=== PATIENT | female | born 1995 | race Hispanic/Latino ===

== ENCOUNTER 2017-07-18 19:17 | Inpatient (IN) | payer MEDICAID ==
[~2017-07-18] VITALS: Ht 157.5 cm; Wt 97.5 kg
[2017-07-18 20:41] VITALS: BP 119/78
[2017-07-18] MEDS ORDERED: PREN1TAB89 PO (20:45)
[2017-07-18] MEDS ORDERED: NITR100 PO (20:45)
[2017-07-18] MEDS ORDERED: GLYB2.5 PO (20:45)
[2017-07-18 20:52] LABS: APPEARANCE,URINE Cloudy (CLEAR); BILIRUBIN,URINE Negative (NEGATIVE); COLOR,URINE Yellow (YELLOW); GLUCOSE, URINE (UA) Negative (NEGATIVE); KETONES,URINE Negative (NEGATIVE); LEUKOCYTE ESTERASE ,URINE Moderate (NEGATIVE); NITRATE,URINE Negative (NEGATIVE); OCCULT BLOOD,URINE Nonhemolyzed Trace (NEGATIVE); PH,URINE 7.5 (5.0-8.0); PROTEIN,URINE Negative (NEGATIVE)
[2017-07-18 20:59] LABS: BACTERIA,URINE Few /HPF (None Seen); SQUAMOUS EPITHELIAL CELL,UR 50-100 /LPF (0-2)
[2017-07-18 21:30] LABS: HEMATOCRIT 36.3 % (36-48); MEAN CORPUSCULAR HEMOGLOBIN 30.6 pg (27.0-33.0); MEAN CORPUSCULAR HGB CONC 35.1 g/dL (32.0-36.0); MEAN CORPUSCULAR VOLUME 87.1 fL (80-100); PLATELET COUNT (AUTO) 211 K/uL (130-400); RED BLOOD CELL COUNT(AUTO) 4.17 MIL/uL (4.00-5.50); RED CELL DISTRIBUTION WIDTH 14.2 % (11.0-15.5); WHITE BLOOD COUNT (AUTO) 9.4 K/uL (4.8-10.8)
[2017-07-18] MEDS: LACTATED RINGERS 1000ML 1,000 ML IV PRN (22:22)
[2017-07-19] MEDS ORDERED: OXYTOCIN 10 USP UNITS/ML 20 UNIT in LACTATED RINGERS 1000ML 1,000 ML IV SCH (04:15)
[2017-07-19] MEDS ORDERED: LACTATED RINGERS 1000ML 1,000 ML IV ONE (04:44)
[2017-07-19] MEDS ORDERED: OXYTOCIN 10 USP UNITS/ML ONE ×4 (04:45→19:06)
[2017-07-19] MEDS: LACTATED RINGERS 1000ML 1,000 ML IV PRN (05:18)
[2017-07-19] MEDS ORDERED: PROMETHAZINE HCL 25 MG/ML 1ML AMPULE IM ONE (14:35)
[2017-07-19] MEDS ORDERED: MEPERIDINE-PF 50 MG/ML SYG ONE (14:36)
[2017-07-19] MEDS ORDERED: MEPERIDINE-PF 50 MG/ML SYG IVP PRN (14:45)
[2017-07-19] MEDS ORDERED: PROMETHAZINE HCL 25 MG/ML 1ML AMPULE IM PRN ×3 (14:45→19:45)
[2017-07-19] MEDS ORDERED: CEFAZOLIN SODIUM 1 GM VIAL IVP PRN (15:45)
[2017-07-19] MEDS ORDERED: LACTATED RINGERS 1000ML 1,000 ML IV SCH (15:45)
[2017-07-19] MEDS ORDERED: CALDOLOR 800MG+NS 250ML 250 ML IV PRN (15:45)
[2017-07-19] MEDS ORDERED: FENTANYL CITRATE PF 50 MCG/1 ML 2ML VIAL ONE ×2 (15:54→16:17)
[2017-07-19] MEDS ORDERED: SODIUM CHLORIDE 0.9% 10 ML VIAL ONE (15:55)
[2017-07-19] MEDS ORDERED: PHENYLEPHRINE HCL 10 MG/ML 1ML VIAL IV ONE (15:55)
[2017-07-19] MEDS ORDERED: ONDANSETRON HCL 4 MG/2 ML VIAL ONE (15:55)
[2017-07-19] MEDS ORDERED: DURAMORPH PF1 MG/ML 10ML AMP IV ONE (15:59)
[2017-07-19] MEDS ORDERED: CEFAZOLIN 3GM /D5W 100ML 100 ML IV SCH (16:00)
[2017-07-19] MEDS ORDERED: CEFAZOLIN SODIUM 1 GM VIAL IVP ONE (16:00)
[2017-07-19] MEDS ORDERED: CEFAZOLIN SODIUM 1 GM VIAL ONE (16:02)
[2017-07-19] MEDS ORDERED: KETAMINE HCL 100 MG/ML 5ML VIAL IJ ONE (16:18)
[2017-07-19] MEDS ORDERED: MIDAZOLAM HCL 1 MG/ML 2ML VIAL ONE (16:20)
[2017-07-19] MEDS ORDERED: METHYLERGONOVINE MALEATE 0.2 MG/1 ML ML ONE (18:06)
[2017-07-19 18:50] VITALS: BP 127/71
[2017-07-19] MEDS ORDERED: METOCLOPRAMIDE 10 MG/2 ML VIAL IVP PRN (19:30)
[2017-07-19] MEDS ORDERED: NALOXONE HCL 0.4 MG/1 ML ML IVP PRN ×2 (19:30)
[2017-07-19] MEDS ORDERED: ONDANSETRON HCL 4 MG/2 ML 8 MG in SODIUM CHLORIDE 0.9% 50 ML IVP NR (19:30)
[2017-07-19] MEDS ORDERED: EPHEDRINE SULFATE 50 MG/ML AMPULE IVP PRN (19:30)
[2017-07-19] MEDS ORDERED: DiphenhydrAMINE HCL 50 MG/ML VIAL IVP PRN (19:30)
[2017-07-19] MEDS ORDERED: HYDROCODONE/ACETAMINOPHEN 5/325 MG TAB PO PRN ×2 (19:30)
[2017-07-19] MEDS ORDERED: ONDANSETRON HCL 4 MG/2 ML VIAL IVP PRN ×2 (19:30)
[2017-07-19] MEDS ORDERED: MORPHINE SULFATE 2 MG/ML 1ML SYG IVP PRN (19:30)
[2017-07-19] MEDS ORDERED: OXYTOCIN-LR 20 UNITS/1000 ML 1,000 ML IV PRN (19:35)
[2017-07-19] MEDS ORDERED: SODIUM CHLORIDE 0.9% 10 ML VIAL IVP PRN (19:45)
[2017-07-19] MEDS ORDERED: MEPERIDINE-PF 75 MG/ML SYG IM PRN (19:45)
[2017-07-19] MEDS ORDERED: DEXTROSE 5 %-0.45 % NACL 1,000 ML IV PRN (19:45)
[2017-07-19 19:50] VITALS: BP 129/71
[2017-07-19 23:26] VITALS: BP 120/72
[2017-07-20] MEDS: CALDOLOR 800MG+NS 250ML 250 ML IV SCH ×2 (00:28→08:56)
[2017-07-20 03:16] VITALS: BP 106/50
[2017-07-20 05:42] LABS: HEMATOCRIT 23.1 % (36-48); MEAN CORPUSCULAR HEMOGLOBIN 31.1 pg (27.0-33.0); MEAN CORPUSCULAR HGB CONC 35.3 g/dL (32.0-36.0); MEAN CORPUSCULAR VOLUME 88.2 fL (80-100); PLATELET COUNT (AUTO) 149 K/uL (130-400); RED BLOOD CELL COUNT(AUTO) 2.62 MIL/uL (4.00-5.50); RED CELL DISTRIBUTION WIDTH 14.1 % (11.0-15.5)
[2017-07-20] MEDS ORDERED: BISACODYL 10 MG SUPP.RECT RC PRN (08:00)
[2017-07-20] MEDS ORDERED: DIPHENHYDRAMINE HCL 25 MG CAPSULE PO PRN (08:00)
[2017-07-20] MEDS ORDERED: LANOLIN 30GM OINTMENT TP PRN (08:00)
[2017-07-20] MEDS ORDERED: ACETAMINOPHEN-CODEINE 300/30MG TAB PO PRN (08:00)
[2017-07-20] MEDS ORDERED: ACETAMINOPHEN EXTRA STRENGTH 500 MG TABLET PO PRN (08:00)
[2017-07-20] MEDS ORDERED: HYDROCODONE/ACETAMINOPHEN 5/325 MG TAB PO PRN (08:00)
[2017-07-20 08:01] VITALS: BP 93/49
[2017-07-20 08:23] LABS: HEPATITIS Bs ANTIGEN SCREEN P Negative (Negative)
[2017-07-20] MEDS: DOCUSATE SODIUM 100 MG CAP PO SCH ×2 (09:19→21:11)
[2017-07-20] MEDS: SIMETHICONE 80 MG TAB.CHEW PO PRN ×4 (09:20→21:11)
[2017-07-20 11:47] VITALS: BP 101/59
[2017-07-20 15:43] VITALS: BP 103/50
[2017-07-20] MEDS: IBUPROFEN 600 MG TABLET PO PRN (18:03)
[2017-07-20 19:36] VITALS: BP 117/70
[2017-07-20] MEDS: FLU VACC QS2017-18 36MOS UP/PF 60 MCG/0.5 ML ML IM SCH (19:45)
[2017-07-20] MEDS ORDERED: AMMONIA 1 EA AMP IH ONE (21:02)
[2017-07-20 23:24] VITALS: BP 109/56
[2017-07-21 03:12] VITALS: BP 117/55
[2017-07-21] MEDS: IBUPROFEN 600 MG TABLET PO PRN ×3 (03:19→18:29)
[2017-07-21] MEDS: FLU VACC QS2017-18 36MOS UP/PF 60 MCG/0.5 ML ML IM SCH (03:22)
[2017-07-21 07:58] VITALS: BP 117/54
[2017-07-21] MEDS: SIMETHICONE 80 MG TAB.CHEW PO PRN ×2 (09:02→18:27)
[2017-07-21] MEDS: DOCUSATE SODIUM 100 MG CAP PO SCH (09:02)
[2017-07-21 11:37] VITALS: BP 118/57
[2017-07-21] MEDS ORDERED: FERR325T22 PO (13:41)
[2017-07-21] MEDS ORDERED: TYL3 PO (13:43)
[2017-07-21 15:31] VITALS: BP 122/63
[2017-07-21 19:45] VITALS: BP 123/71
== END 2017-07-21 20:30 | disposition home or self-care (01) | DRG 540 ==
LOC: UNDOADMIN 19:17 → LDH 19:17 → WSH 07-19 18:45
PROVIDERS: ADMIT Obstetrics & Gynecology; ATTEND Obstetrics & Gynecology
PROC: 3E0234Z Introduction of Serum, Toxoid and Vaccine into Muscle, Percutaneous Approach (ICD-10-PCS; 2017-07-19)
PROC: 30233N1 Transfusion of Nonautologous Red Blood Cells into Peripheral Vein, Percutaneous Approach (ICD-10-PCS; 2017-07-19)
PROC: 10D00Z1 Extraction of Products of Conception, Low, Open Approach (ICD-10-PCS; principal; 2017-07-19 16:00)
DX: O76 Abnormality in fetal heart rate and rhythm complicating labor and delivery (principal); Z23 Encounter for immunization; Z37.0 Single live birth; Z3A.39 39 weeks gestation of pregnancy
CPT/HCPCS: 36415; 36430; 59510; 81001; 82947; 85027; 86592; 86850; 86900; 86901; 86922; 87340; A4344; A4450; A4606; J0690; J1741; J2175; J2210; J2250; J2274; J2370; J2405; J2550; J2590; J3010; J3490; J7030; J7120; P9016; Q2038

== ENCOUNTER 2019-07-22 20:24 | Observation (INO) | payer MEDICAID ==
[~2019-07-22] VITALS: Ht 157.5 cm; Wt 103.4 kg
[~2019-07-22 20:24] MED LIST: GLYB5TAB8 PO; PREN-154 PO
[2019-07-22 21:11] LABS: BILIRUBIN,URINE Negative (NEGATIVE); COLOR,URINE Dark Yellow (YELLOW); GLUCOSE, URINE (UA) TRACE mg/dL (NEGATIVE); KETONES,URINE Negative (NEGATIVE); LEUKOCYTE ESTERASE ,URINE Moderate (NEGATIVE); NITRATE,URINE Negative (NEGATIVE); OCCULT BLOOD,URINE Small (NEGATIVE); PROTEIN,URINE Trace mg/dL (NEGATIVE)
[2019-07-22 21:12] LABS: APPEARANCE,URINE CLOUDY (CLEAR)
[2019-07-22 21:21] LABS: BACTERIA,URINE Many /HPF (None Seen); RBC,URINE None Seen /HPF (0-1)
[2019-07-22 21:22] LABS: AMORPHOUS SEDIMENT,UR Many /LPF (None Seen)
[2019-07-23] MEDS ORDERED: LACTATED RINGERS 1000ML 1,000 ML IV SCH (01:00)
== END 2019-07-23 10:05 | disposition home or self-care (01) ==
LOC: EDH 20:24 → LDH 20:25
PROVIDERS: ADMIT Obstetrics & Gynecology; ATTEND Obstetrics & Gynecology
DX: O9A.213 Injury, poisoning and certain other consequences of external causes complicating pregnancy, third trimester (principal); O34.219 Maternal care for unspecified type scar from previous cesarean delivery; W10.9XXA Fall (on) (from) unspecified stairs and steps, initial encounter; Y93.89 Activity, other specified; Y92.89 Other specified places as the place of occurrence of the external cause; Z3A.33 33 weeks gestation of pregnancy
CPT/HCPCS: 81001; 99284; G0378 ×13; J7120; 96360; 96361

== ENCOUNTER 2019-09-11 05:27 | Inpatient (IN) | payer MEDICAID ==
[~2019-09-11] VITALS: Ht 157.5 cm; Wt 105.2 kg
[2019-09-11] VITALS (16 sets, daily range): BP systolic 106–131; BP diastolic 56–87
[2019-09-11] MEDS ORDERED: LACTATED RINGERS 1000ML 1,000 ML IV SCH (06:00)
[2019-09-11] MEDS ORDERED: CEFAZOLIN SODIUM 1 GM VIAL IVP PRN (06:00)
[2019-09-11] MEDS ORDERED: CALDOLOR 800MG+NS 250ML 250 ML IV PRN (06:00)
[2019-09-11 06:56] LABS: HEMATOCRIT 35.5 % (36-48); MEAN CORPUSCULAR HEMOGLOBIN 28.4 pg (27.0-33.0); MEAN CORPUSCULAR HGB CONC 32.7 g/dL (32.0-36.0); MEAN CORPUSCULAR VOLUME 86.8 fL (79-99); PLATELET COUNT (AUTO) 184 K/uL (130-400); RED BLOOD CELL COUNT(AUTO) 4.09 MIL/uL (4.00-5.50); RED CELL DISTRIBUTION WIDTH 13.7 % (11.0-15.5); WHITE BLOOD COUNT (AUTO) 9.1 K/uL (4.8-10.8)
[2019-09-11] MEDS ORDERED: HYDROCODONE/ACETAMINOPHEN 5/325 MG TAB PO PRN (08:45)
[2019-09-11] MEDS ORDERED: LANOLIN 30GM OINTMENT TP PRN (08:45)
[2019-09-11] MEDS ORDERED: DIPH,PERTUSS(ACELL),TET VAC/PF 0.5 ML VIAL IM SCH (08:45)
[2019-09-11] MEDS ORDERED: PROMETHAZINE HCL 25 MG/ML 1ML AMPULE IM PRN (08:45)
[2019-09-11] MEDS ORDERED: MEASLES/MUMPS/RUBELLA VACCINE, LIVE 0.5 ML/VIAL SQ SCH (08:45)
[2019-09-11] MEDS ORDERED: SODIUM CHLORIDE 0.9% 10 ML VIAL IVP PRN (08:45)
[2019-09-11] MEDS ORDERED: OXYTOCIN-LR 20 UNITS/1000 ML 1,000 ML IV PRN (08:45)
[2019-09-11] MEDS ORDERED: BISACODYL 10 MG SUPP.RECT RC PRN (08:45)
[2019-09-11] MEDS ORDERED: DIPHENHYDRAMINE HCL 25 MG CAPSULE PO PRN (08:45)
[2019-09-11] MEDS ORDERED: MEPERIDINE-PF 75 MG/ML SYG IM PRN (08:45)
[2019-09-11] MEDS ORDERED: IBUPROFEN 600 MG TABLET PO PRN (08:45)
[2019-09-11] MEDS ORDERED: ACETAMINOPHEN EXTRA STRENGTH 500 MG TABLET PO PRN (08:45)
[2019-09-11] MEDS ORDERED: LIDOCAINE 5% TOPICAL PATCH TP SCH (09:00)
[2019-09-11] MEDS ORDERED: ONDANSETRON HCL 4 MG/2 ML VIAL ONE (09:01)
[2019-09-11] MEDS ORDERED: DURAMORPH PF1 MG/ML 10ML AMP IV ONE (09:01)
[2019-09-11] MEDS ORDERED: FENTANYL CITRATE PF 50 MCG/1 ML 2ML VIAL ONE (09:02)
[2019-09-11] MEDS ORDERED: CEFAZOLIN SODIUM 1 GM VIAL IVP ONE (09:05)
[2019-09-11] MEDS ORDERED: PHENYLEPHRINE HCL 10 MG/ML 1ML VIAL IV ONE (09:15)
[2019-09-11] MEDS ORDERED: METHYLERGONOVINE MALEATE 0.2 MG/1 ML ML ONE (09:28)
--- NOTE | 2019-09-11 11:25 | NUR ---
QBL - 291 ML Addendum: 09/11/19 at 1310 by HAILEY HOLT RN Amended: Links added.
[2019-09-11 13:42] LABS: RAPID PLASMA REAGIN NONREACTIVE (NONREACTIVE)
[2019-09-11] MEDS: CALDOLOR 800MG+NS 250ML 250 ML IV SCH (16:43)
[2019-09-11] MEDS: ACETAMINOPHEN-CODEINE 300/30MG TAB PO PRN (17:46)
--- NOTE | 2019-09-11 19:15 | NUR ---
Report received from Jenn Anderson RN. Patient received awake alert lying in bed with IV of LR with 20 units Pitocin regulated at 150 ml/hour. Mcdermott Catheter patent flowing clear yellow urine, fundus firm with small lochia rubra, Arely care done. Plan of care discussed with patient verbalizes understanding.
[2019-09-11] MEDS: DEXTROSE 5 %-0.45 % NACL 1,000 ML IV PRN (20:42)
[2019-09-11] MEDS: SIMETHICONE 80 MG TAB.CHEW PO PRN (21:14)
[2019-09-11] MEDS: DOCUSATE SODIUM 100 MG CAP PO SCH (21:15)
[2019-09-12] MEDS: CALDOLOR 800MG+NS 250ML 250 ML IV SCH (01:17)
[2019-09-12 04:03] VITALS: BP 97/40
--- NOTE | 2019-09-12 04:15 | NUR ---
Arely; Arely care done with small lochia rubra, Abdominal binder applied.
[2019-09-12] MEDS: DEXTROSE 5 %-0.45 % NACL 1,000 ML IV PRN (05:24)
--- NOTE | 2019-09-12 06:45 | NUR ---
Mcdermott; Mcdermott Catheter taken out. Patient advice to call for help if needed. She verbalizes understanding.
[2019-09-12 07:11] LABS: HEMATOCRIT 30.2 % (36-48); MEAN CORPUSCULAR HEMOGLOBIN 29.6 pg (27.0-33.0); MEAN CORPUSCULAR HGB CONC 33.4 g/dL (32.0-36.0); MEAN CORPUSCULAR VOLUME 88.6 fL (79-99); PLATELET COUNT (AUTO) 158 K/uL (130-400); RED BLOOD CELL COUNT(AUTO) 3.41 MIL/uL (4.00-5.50); RED CELL DISTRIBUTION WIDTH 13.9 % (11.0-15.5); WHITE BLOOD COUNT (AUTO) 6.3 K/uL (4.8-10.8)
[2019-09-12 07:11] LABS: HEPATITIS Bs ANTIGEN SCREEN P Negative (Negative)
--- NOTE | 2019-09-12 07:40 | NUR ---
pericare done, applied abdominal binder, assisted to bedside chair, pt tolerated well Addendum: 09/12/19 at 0834 by HAILEY HOLT RN Amended: Links added.
[2019-09-12 07:48] VITALS: BP 117/66
[2019-09-12] MEDS: SIMETHICONE 80 MG TAB.CHEW PO PRN (09:21)
[2019-09-12] MEDS: DOCUSATE SODIUM 100 MG CAP PO SCH (09:21)
[2019-09-12 12:01] VITALS: BP 122/52
[2019-09-12] MEDS: ACETAMINOPHEN-CODEINE 300/30MG TAB PO PRN (12:04)
[2019-09-12] MEDS ORDERED: NAPR-1180 PO (12:44)
[2019-09-12] MEDS ORDERED: ACET1TAB12 PO (12:45)
[2019-09-12] MEDS ORDERED: DOCU-116 PO (12:45)
--- NOTE | 2019-09-12 15:40 | NUR ---
verbal and written discharge instructions given, informed of the follow up appointment, prescription given, all questions answered, informed to call the doctor for future concerns, pt voiced understanding to all things discussed. Addendum: 09/12/19 at 1548 by HAILEY HOLT RN Amended: Links added.
[2019-09-12 17:00] VITALS: BP 139/72
--- NOTE | 2019-09-12 17:50 | NUR ---
pt is dismissed in stable condition, brought to private car via wheelchair by tamia Branham pcp Addendum: 09/12/19 at 1751 by HAILEY HOLT RN Amended: Links added.
== END 2019-09-12 17:45 | disposition home or self-care (01) | DRG 540 ==
LOC: LDH 05:27 → WSH 10:13
PROVIDERS: ADMIT Obstetrics & Gynecology; ATTEND Obstetrics & Gynecology
PROC: 00HU33Z Insertion of Infusion Device into Spinal Canal, Percutaneous Approach (ICD-10-PCS; 2019-09-11)
PROC: 3E0R3BZ Introduction of Anesthetic Agent into Spinal Canal, Percutaneous Approach (ICD-10-PCS; 2019-09-11)
PROC: 10D00Z1 Extraction of Products of Conception, Low, Open Approach (ICD-10-PCS; principal; 2019-09-11 09:00)
DX: O24.429 Gestational diabetes mellitus in childbirth, unspecified control (principal); O99.214 Obesity complicating childbirth; E66.01 Morbid (severe) obesity due to excess calories; O34.211 Maternal care for low transverse scar from previous cesarean delivery; O62.2 Other uterine inertia; K21.9 Gastro-esophageal reflux disease without esophagitis; O69.81X0 Labor and delivery complicated by cord around neck, without compression, not applicable or unspecified; O99.62 Diseases of the digestive system complicating childbirth; Z3A.39 39 weeks gestation of pregnancy; Z37.0 Single live birth
CPT/HCPCS: 36415; 59510; 82947; 85027; 86592; 86701; 86850; 86900; 86901; 87340; 87390; A4344; G0378; J0690; J1741; J2210; J2274; J2370; J2405; J2590; J3010; J7120

== ENCOUNTER 2019-09-20 01:54 | Emergency (ER) | payer MEDICAID ==
[~2019-09-20 01:54] MED LIST changes: +ACET1TAB12 PO; +DOCU-116 PO; -GLYB5TAB8 PO; +NAPR-1180 PO
[2019-09-20] MEDS ORDERED: CEPHALEXIN 500 MG CAPSULE ONE (03:01)
== END 2019-09-20 05:13 | disposition home or self-care (01) ==
LOC: EDH 01:54
DX: O90.0 Disruption of cesarean delivery wound (principal)

== ENCOUNTER 2019-10-30 05:37 | Day surgery (SDC) | payer MEDICAID ==
[2019-10-29 11:28] LABS: BASOPHILS % (AUTO) 0.2 % (0.0-5.0); EOSINOPHILS % (AUTO) 3.7 % (0.0-8.0); HEMATOCRIT 38.3 % (36-48); LYMPHOCYTES % (AUTO) 30.8 % (21.0-51.0); MEAN CORPUSCULAR HEMOGLOBIN 28.3 pg (27.0-33.0); MEAN CORPUSCULAR HGB CONC 32.4 g/dL (32.0-36.0); MEAN CORPUSCULAR VOLUME 87.4 fL (79-99); MONOCYTES % (AUTO) 4.1 % (3.0-13.0); NEUTROPHILS % (AUTO) 60.9 % (40.0-77.0); PLATELET COUNT (AUTO) 267 K/uL (130-400); RED BLOOD CELL COUNT(AUTO) 4.38 MIL/uL (4.00-5.50); RED CELL DISTRIBUTION WIDTH 13.4 % (11.0-15.5); WHITE BLOOD COUNT (AUTO) 5.9 K/uL (4.8-10.8)
[2019-10-29 13:51] VITALS: BP 121/64
[~2019-10-30] VITALS: Ht 157.5 cm; Wt 95.3 kg
[2019-10-30] VITALS (17 sets, daily range): BP systolic 115–137; BP diastolic 61–79
[2019-10-30] MEDS ORDERED: SODIUM CHLORIDE 0.9% 1000ML 1,000 ML IV ONE (05:59)
[2019-10-30] MEDS ORDERED: CEFAZOLIN SODIUM 1 GM VIAL IVP SCH (06:00)
[2019-10-30] MEDS ORDERED: CALDOLOR 800MG+NS 250ML 250 ML IV SCH (06:00)
[2019-10-30] MEDS ORDERED: LACTATED RINGERS 1000ML 1,000 ML IV SCH (06:00)
[2019-10-30] MEDS ORDERED: LIDOCAINE PF 2% 5ML ABBOJECT ONE (07:07)
[2019-10-30] MEDS ORDERED: MIDAZOLAM HCL 1 MG/ML 2ML VIAL ONE (07:07)
[2019-10-30] MEDS ORDERED: DEXAMETHASONE SOD PHOSPHATE 10MG/ML 1ML VIAL ONE (07:07)
[2019-10-30] MEDS ORDERED: ROCURONIUM 10MG/1ML SYR 10 MG/ML ML ONE (07:08)
[2019-10-30] MEDS ORDERED: FENTANYL CITRATE PF 50 MCG/1 ML 2ML VIAL ONE ×2 (07:08→07:30)
[2019-10-30] MEDS ORDERED: PROPOFOL 10 MG/ML 20ML VIAL IV ONE (07:08)
[2019-10-30] MEDS ORDERED: ONDANSETRON HCL 4 MG/2 ML VIAL ONE (07:08)
[2019-10-30] MEDS ORDERED: BUPIVACAINE/PF 0.25% 30ML VIAL IJ ONE (07:21)
[2019-10-30] MEDS ORDERED: GLYCOPYRROLATE 1 MG/5 ML SYRINGE ONE (07:54)
[2019-10-30] MEDS ORDERED: NEOSTIGMINE 5MG/5ML SYR IV ONE (07:54)
[2019-10-30] MEDS ORDERED: MEPERIDINE-PF 25 MG/ML SYG ONE ×2 (08:18→08:29)
--- NOTE | 2019-10-30 09:15 | NUR ---
RECEIVE REPORT RECEIVED FROM KAMRYN HENRY RN. PT RECEIVED LYING IN STRETCHER EYES AWAKE AND ALERT. STATES SHE STILL HAS SOME INCISIONAL PAIN. INCISION X2 TO ABDOMEN INTACT WITH DERMABOND, NO OOZING NO DISCHARGE NOTED, ABDOMEN SOFT. PER REPORT, NO MORE PAIN MED TO BE GIVEN IN UNIT, PT MAY TAKE HER PAIN MEDICATION PRESCRIBED BY DR. KONG PRE OP ONCE SHE GETS HOME, PT IS AWARE. WILL CONTINUE TO MONITOR PT. MELQUIADES DYER WITHIN REACH, WILL CALL MOTHER TO DRIVE PT HOME.
--- NOTE | 2019-10-30 09:55 | NUR ---
DISCHARGE PT DISCHARGED VIA WHEELCHAIR WITH MOTHER AND SISTER. STABLE. COMPLAINS OF SOME PAIN BUT STATES SHE WILL TAKE HER PAIN MEDS ONCE SHE GETS HOME. DISCHARGE INSTRUCTIONS GIVEN TO SISTER, VERBALIZED UNDERSTANDING. INCISION X2 TO ABDOMEN REMAINS INTACT. NO OOZING NOTED, ABDOMEN SOFT.
== END 2019-10-30 09:55 | disposition home or self-care (01) ==
LOC: DAH 05:37
PROVIDERS: ATTEND Obstetrics & Gynecology
DX: Z30.2 Encounter for sterilization (principal); N73.6 Female pelvic peritoneal adhesions (postinfective); N85.4 Malposition of uterus; E66.9 Obesity, unspecified; E11.9 Type 2 diabetes mellitus without complications; I10 Essential (primary) hypertension; Z98.891 History of uterine scar from previous surgery
CPT/HCPCS: 36415; 58670; 82948 ×2; 84703; 85025; 86850; 86900; 86901; A4213; A4215 ×2; A4221; A4222; A4223; A4335; A4351; A4663; A4930; A6260; C1769 ×2; G0168; J0690; J1100; J2001; J2175 ×2; J2250; J2405; J2704; J2710; J3010 ×2; J3490 ×2; J7030 ×3; J1741

== ENCOUNTER 2020-09-29 13:14 | Inpatient (IN) | payer OTHER, MEDICAID ==
[~2020-09-29] VITALS: Ht 157.5 cm; Wt 94.8 kg
[2020-09-29 14:02] LABS: BASOPHILS % (AUTO) 0.1 % (0.0-5.0); EOSINOPHILS % (AUTO) 0.4 % (0.0-8.0); HEMATOCRIT 41.5 % (36-48); LYMPHOCYTES % (AUTO) 17.1 % (21.0-51.0); MEAN CORPUSCULAR HEMOGLOBIN 30.5 pg (27.0-33.0); MEAN CORPUSCULAR HGB CONC 34.9 g/dL (32.0-36.0); MEAN CORPUSCULAR VOLUME 87.2 fL (79-99); MONOCYTES % (AUTO) 3.9 % (3.0-13.0); NEUTROPHILS % (AUTO) 78.2 % (40.0-77.0); PLATELET COUNT (AUTO) 234 K/uL (130-400); RED BLOOD CELL COUNT(AUTO) 4.76 MIL/uL (4.00-5.50); RED CELL DISTRIBUTION WIDTH 12.2 % (11.0-15.5); WHITE BLOOD COUNT (AUTO) 12.1 K/uL (4.8-10.8)
[2020-09-29 14:10] LABS: CREATININE 0.6 mg/dL (0.5-1.5); POTASSIUM 3.7 mmol/L (3.5-5.1)
[2020-09-29 14:14] LABS: ALBUMIN 4.3 g/dL (3.5-5.0); BILIRUBIN,TOTAL 0.6 mg/dL (0.2-1.0); TOTAL PROTEIN, SERUM 8.4 g/dL (6.0-8.3)
[2020-09-29] MEDS ORDERED: FAMOTIDINE 20MG TAB ONE (14:37)
[2020-09-29] MEDS ORDERED: LIDOCAINE HCL 2% VISCOUS 15 ML UDCUP ONE (14:37)
[2020-09-29] MEDS ORDERED: MAGNESIUM HYDROXIDE 30 ML/UDCUP ONE (14:37)
[2020-09-29 14:41] LABS: APPEARANCE,URINE Cloudy (CLEAR); BILIRUBIN,URINE Negative (NEGATIVE); COLOR,URINE Yellow (YELLOW); GLUCOSE, URINE (UA) Negative (NEGATIVE); KETONES,URINE Negative (NEGATIVE); LEUKOCYTE ESTERASE ,URINE Small (NEGATIVE); NITRATE,URINE Negative (NEGATIVE); OCCULT BLOOD,URINE Negative (NEGATIVE); PROTEIN,URINE Trace mg/dL (NEGATIVE)
[2020-09-29 14:48] LABS: HCG,QUAL RESULT NEGATIVE (NEGATIVE)
[2020-09-29] MEDS ORDERED: ZOSYN 3.375GM+NS 50ML 50 ML IV ONE (14:53)
[2020-09-29] MEDS ORDERED: ONDANSETRON 4MG INJ ONE (14:53)
[2020-09-29] MEDS ORDERED: MORPHINE 4 MG SYG ONE (14:54)
[2020-09-29 15:50] LABS: BACTERIA,URINE Few /HPF (None Seen); MUCUS,URINE Rare LPF (None Seen); RBC,URINE 0-1 /HPF (0-1); SQUAMOUS EPITHELIAL CELL,UR Moderate /HPF (0-2)
[2020-09-29] MEDS ORDERED: MAG/ALUM/SIMETH 30 ML UDCUP PO PRN (16:00)
[2020-09-29] MEDS ORDERED: GUAIFENESIN-DM 200/20 MG 10 ML PO PRN (16:00)
[2020-09-29] MEDS ORDERED: ONDANSETRON 4MG INJ IV PRN (16:00)
[2020-09-29] MEDS ORDERED: LACTULOSE 20 GM/30 ML UDCUP PO PRN (16:00)
[2020-09-29] MEDS ORDERED: ACETAMINOPHEN 325 MG TAB PO PRN (16:00)
[2020-09-29] MEDS ORDERED: DiphenhydrAMINE HCL 50 MG/ML VIAL IV PRN (16:00)
[2020-09-29] MEDS ORDERED: DIPHENHYDRAMINE HCL 25 MG CAPSULE PO PRN (16:00)
[2020-09-29] MEDS ORDERED: NITROGLYCERIN 0.4 MG SL TAB SL PRN (16:00)
[2020-09-29 16:31] LABS: HEMOGLOBIN A1C 5.6 % (4.0-6.0)
[2020-09-29 18:30] VITALS: BP 119/68
[2020-09-29] MEDS: LACTATED RINGERS 1000ML 1,000 ML IV SCH (18:42)
[2020-09-29] MEDS: KETOROLAC 15MG/ML VIAL (15MG/ML) IV PRN (18:42)
[2020-09-29 19:16] VITALS: BP 120/69
[2020-09-29] MEDS: FAMOTIDINE 20MG VIAL IV SCH (21:11)
[2020-09-29] MEDS: ZOSYN 3.375GM+NS 50ML 50 ML IV SCH (21:12)
[2020-09-29 23:46] VITALS: BP 109/61
[2020-09-30 03:33] VITALS: BP 113/71
[2020-09-30 04:27] LABS: BASOPHILS % (AUTO) 0.2 % (0.0-5.0); EOSINOPHILS % (AUTO) 0.9 % (0.0-8.0); HEMATOCRIT 39.1 % (36-48); LYMPHOCYTES % (AUTO) 16.6 % (21.0-51.0); MEAN CORPUSCULAR HEMOGLOBIN 29.5 pg (27.0-33.0); MEAN CORPUSCULAR HGB CONC 33.5 g/dL (32.0-36.0); MEAN CORPUSCULAR VOLUME 88.1 fL (79-99); MONOCYTES % (AUTO) 6.1 % (3.0-13.0); NEUTROPHILS % (AUTO) 75.9 % (40.0-77.0); PLATELET COUNT (AUTO) 200 K/uL (130-400); RED BLOOD CELL COUNT(AUTO) 4.44 MIL/uL (4.00-5.50); WHITE BLOOD COUNT (AUTO) 10.3 K/uL (4.8-10.8)
[2020-09-30 04:41] LABS: ALBUMIN 3.5 g/dL (3.5-5.0); BILIRUBIN,TOTAL 0.9 mg/dL (0.2-1.0); CREATININE 0.7 mg/dL (0.5-1.5); POTASSIUM 3.7 mmol/L (3.5-5.1); TOTAL PROTEIN, SERUM 7.1 g/dL (6.0-8.3)
[2020-09-30] MEDS: LACTATED RINGERS 1000ML 1,000 ML IV SCH (04:45)
[2020-09-30] MEDS: ZOSYN 3.375GM+NS 50ML 50 ML IV SCH ×3 (04:56→20:44)
[2020-09-30] MEDS: KETOROLAC 15MG/ML VIAL (15MG/ML) IV PRN ×3 (06:34→20:00)
[2020-09-30 07:35] VITALS: BP 119/65
[2020-09-30] MEDS: FAMOTIDINE 20MG VIAL IV SCH ×2 (08:29→20:00)
[2020-09-30 11:24] VITALS: BP 114/62
[2020-09-30] MEDS ORDERED: METOCLOPRAMIDE 10 MG/2 ML VIAL IVP SCH (12:45)
[2020-09-30 15:29] VITALS: BP 133/66
[2020-09-30] MEDS: ACETAMINOPHEN 325 MG TAB PO PRN (15:37)
[2020-09-30 19:42] VITALS: BP 122/68
[2020-09-30 23:35] VITALS: BP 121/63
[2020-10-01] VITALS (27 sets, daily range): BP systolic 103–140; BP diastolic 48–80
[2020-10-01] MEDS: KETOROLAC 15MG/ML VIAL (15MG/ML) IV PRN ×3 (02:48→20:05)
[2020-10-01] MEDS: LACTATED RINGERS 1000ML 1,000 ML IV SCH ×2 (03:33→13:01)
[2020-10-01 04:38] LABS: BASOPHILS % (AUTO) 0.2 % (0.0-5.0); EOSINOPHILS % (AUTO) 0.3 % (0.0-8.0); HEMATOCRIT 36.8 % (36-48); MEAN CORPUSCULAR HEMOGLOBIN 29.2 pg (27.0-33.0); MEAN CORPUSCULAR HGB CONC 33.2 g/dL (32.0-36.0); MONOCYTES % (AUTO) 5.8 % (3.0-13.0); NEUTROPHILS % (AUTO) 82.3 % (40.0-77.0); PLATELET COUNT (AUTO) 183 K/uL (130-400); RED BLOOD CELL COUNT(AUTO) 4.18 MIL/uL (4.00-5.50); WHITE BLOOD COUNT (AUTO) 10.8 K/uL (4.8-10.8)
[2020-10-01] MEDS: ZOSYN 3.375GM+NS 50ML 50 ML IV SCH ×3 (04:43→23:57)
[2020-10-01 05:03] LABS: ALBUMIN 3.2 g/dL (3.5-5.0); BILIRUBIN,TOTAL 1.2 mg/dL (0.2-1.0); CREATININE 0.7 mg/dL (0.5-1.5); POTASSIUM 3.7 mmol/L (3.5-5.1)
[2020-10-01] MEDS ORDERED: DEXAMETHASONE SOD PHOSPHATE 10MG/ML 1ML VIAL ONE (07:17)
[2020-10-01] MEDS ORDERED: LIDOCAINE PF 100MG/5ML (2%) SYRINGE 5ML ONE ×2 (07:17→07:54)
[2020-10-01] MEDS ORDERED: ONDANSETRON 4MG INJ ONE (07:17)
[2020-10-01] MEDS ORDERED: SUCCINYLCHOLINE CHLORIDE 20 MG/ML 10 ML VIAL ONE ×2 (07:17→07:18)
[2020-10-01] MEDS ORDERED: PROPOFOL 10 MG/ML 20ML VIAL IV ONE (07:18)
[2020-10-01] MEDS ORDERED: MIDAZOLAM HCL 1 MG/ML 2ML VIAL ONE (07:18)
[2020-10-01] MEDS ORDERED: GLYCOPYRROLATE 1 MG/5 ML SYRINGE ONE (07:18)
[2020-10-01] MEDS ORDERED: NEOSTIGMINE 5MG/5ML SYR IV ONE (07:18)
[2020-10-01] MEDS ORDERED: ROCURONIUM 10MG/1ML SYR 10 MG/ML ML ONE (07:18)
[2020-10-01] MEDS ORDERED: FENTANYL CITRATE PF 50 MCG/1 ML 2ML VIAL ONE (07:18)
[2020-10-01] MEDS ORDERED: LIDOCAINE HCL 5% OINT 50GM 1 APPL/GM TUBE TP ONE (07:19)
[2020-10-01] MEDS ORDERED: BUPIVACAINE/PF 0.5% 30ML VIAL ONE (07:50)
[2020-10-01] MEDS ORDERED: MEPERIDINE-PF 25 MG/ML SYG ONE ×2 (08:21→08:57)
[2020-10-01] MEDS: FAMOTIDINE 20MG VIAL IV SCH ×2 (10:31→23:57)
[2020-10-01] MEDS: ACETAMINOPHEN 325 MG TAB PO PRN (10:32)
[2020-10-01] MEDS ORDERED: MORPHINE 2 MG SYG IM PRN (16:45)
[2020-10-01] MEDS ORDERED: MORPHINE 2 MG SYG IVP PRN (20:45)
[2020-10-02 03:30] VITALS: BP 116/60
[2020-10-02] MEDS: LACTATED RINGERS 1000ML 1,000 ML IV SCH (03:33)
[2020-10-02 04:09] LABS: BASOPHILS % (AUTO) 0.1 % (0.0-5.0); EOSINOPHILS % (AUTO) 0.4 % (0.0-8.0); HEMATOCRIT 29.6 % (36-48); LYMPHOCYTES % (AUTO) 16.9 % (21.0-51.0); MEAN CORPUSCULAR HEMOGLOBIN 30.5 pg (27.0-33.0); MEAN CORPUSCULAR HGB CONC 34.8 g/dL (32.0-36.0); MEAN CORPUSCULAR VOLUME 87.6 fL (79-99); MONOCYTES % (AUTO) 6.3 % (3.0-13.0); PLATELET COUNT (AUTO) 162 K/uL (130-400); RED BLOOD CELL COUNT(AUTO) 3.38 MIL/uL (4.00-5.50); WHITE BLOOD COUNT (AUTO) 7.1 K/uL (4.8-10.8)
[2020-10-02 04:22] LABS: ALBUMIN 2.8 g/dL (3.5-5.0); BILIRUBIN,TOTAL 1.1 mg/dL (0.2-1.0); CREATININE 0.5 mg/dL (0.5-1.5); POTASSIUM 3.6 mmol/L (3.5-5.1); TOTAL PROTEIN, SERUM 6.4 g/dL (6.0-8.3)
[2020-10-02] MEDS: ZOSYN 3.375GM+NS 50ML 50 ML IV SCH (06:14)
[2020-10-02 07:10] VITALS: BP 120/67
[2020-10-02] MEDS: KETOROLAC 15MG/ML VIAL (15MG/ML) IV PRN (07:34)
[2020-10-02] MEDS: FAMOTIDINE 20MG VIAL IV SCH (08:43)
[2020-10-02 11:12] VITALS: BP 129/64
[2020-10-02] MEDS ORDERED: AMOX-429 PO (13:14)
[2020-10-02] MEDS ORDERED: IBUP-2077 PO (13:14)
== END 2020-10-02 14:20 | disposition home or self-care (01) | DRG 418 ==
LOC: EDH 13:14 → EDHIP 13:15 → WSH 18:30
PROVIDERS: ADMIT Family Medicine; ATTEND Family Medicine
PROC: 0FT44ZZ Resection of Gallbladder, Percutaneous Endoscopic Approach (ICD-10-PCS; principal; 2020-10-01 07:27)
DX: K80.00 Calculus of gallbladder with acute cholecystitis without obstruction (principal); N39.0 Urinary tract infection, site not specified; K52.9 Noninfective gastroenteritis and colitis, unspecified; E66.01 Morbid (severe) obesity due to excess calories; K76.0 Fatty (change of) liver, not elsewhere classified; N83.201 Unspecified ovarian cyst, right side; K82.8 Other specified diseases of gallbladder; B96.20 Unspecified Escherichia coli [E. coli] as the cause of diseases classified elsewhere; Z20.822 Contact with and (suspected) exposure to COVID-19; Z68.38 Body mass index [BMI] 38.0-38.9, adult; Z86.32 Personal history of gestational diabetes
CPT/HCPCS: 36415; 74176; 76705; 80053; 81001; 81025; 83036; 83690; 85025; 87077; 87088; 87186; 87426; A4344; G0378; J0330; J1100; J1885; J2001; J2175; J2250; J2270; J2405; J2543; J2704; J2710; J3010; J3490; J7030; J7120

== ENCOUNTER 2022-03-30 18:32 | Emergency (ER) | payer MEDICAID, OTHER ==
[~2022-03-30] VITALS: Ht 157.5 cm; Wt 97.5 kg
[~2022-03-30 18:32] MED LIST changes: -ACET1TAB12 PO; +AMOX-429 PO; -DOCU-116 PO; +IBUP-2077 PO; -NAPR-1180 PO; -PREN-154 PO
[2022-03-30 18:35] VITALS: BP 126/62
== END 2022-03-30 19:24 | disposition home or self-care (01) ==
LOC: EDH 18:32
DX: L50.9 Urticaria, unspecified (principal); Z79.1 Long term (current) use of non-steroidal anti-inflammatories (NSAID)
CPT/HCPCS: 99281

== ENCOUNTER 2023-10-16 07:00 | Day surgery (SDC) | payer OTHER, MEDICAID ==
[~2023-10-16] VITALS: Ht 157.5 cm; Wt 99.8 kg
[2023-10-16] VITALS (12 sets, daily range): BP systolic 113–124; BP diastolic 60–85; PULSE 55–81; RESP 16–19
[2023-10-16] MEDS: 0.9%NACL 1000ML 1,000 ML IV ONE (07:54)
[2023-10-16] MEDS ORDERED: LIDOCAINE HCL 1% 20 ML VIAL ONE (07:55)
[2023-10-16] MEDS ORDERED: PROPOFOL 10 MG/ML 20ML VIAL IV ONE (07:55)
[2023-10-16] MEDS ORDERED: PREN-64 PO (08:02)
== END 2023-10-16 09:36 | disposition home or self-care (01) ==
LOC: DAH 07:00 → ENDO 07:00
PROVIDERS: ATTEND Surgery
DX: K21.9 Gastro-esophageal reflux disease without esophagitis (principal); K80.13 Calculus of gallbladder with acute and chronic cholecystitis with obstruction; E66.01 Morbid (severe) obesity due to excess calories; Z68.39 Body mass index [BMI] 39.0-39.9, adult; Z90.49 Acquired absence of other specified parts of digestive tract
CPT/HCPCS: 71045; 81025; 93005; 43235; J7030; J2704; A4620; A4215; J3490

== ENCOUNTER 2024-05-07 17:31 | Emergency (ER) | payer MEDICAID, OTHER ==
[~2024-05-07] VITALS: Ht 157.5 cm; Wt 96.6 kg
[~2024-05-07 17:31] MED LIST changes: -AMOX-429 PO; -IBUP-2077 PO; +PREN-64 PO
[2024-05-07 17:33] VITALS: TEMP 98.2
[2024-05-07 18:51] LABS: BASOPHILS # (AUTO) 0.04 K/uL (0.00-0.20); BASOPHILS % (AUTO) 0.3 % (0.0-5.0); EOSINOPHILS # (AUTO) 0.08 K/uL (0.00-0.70); EOSINOPHILS % (AUTO) 0.7 % (0.0-8.0); HEMATOCRIT 41.9 % (36-48); IMMATURE GRANULOCYTE ABSOLUTE 0.05 K/uL (0-1); LYMPHOCYTES # (AUTO) 2.2 K/uL (1.0-4.8); LYMPHOCYTES % (AUTO) 18.4 % (21.0-51.0); MEAN CORPUSCULAR HEMOGLOBIN 30.8 pg (27.0-33.0); MEAN CORPUSCULAR HGB CONC 34.4 g/dL (32.0-36.0); MEAN CORPUSCULAR VOLUME 89.7 fL (79-99); MONOCYTES # (AUTO) 0.4 K/uL (0.1-1.0); MONOCYTES % (AUTO) 2.9 % (3.0-13.0); NEUTROPHILS # (AUTO) 9.3 K/uL (1.8-7.7); NEUTROPHILS % (AUTO) 77.3 % (40.0-77.0); PLATELET COUNT (AUTO) 282 K/uL (130-400); RED BLOOD CELL COUNT(AUTO) 4.67 MIL/uL (4.00-5.50); RED CELL DISTRIBUTION WIDTH 11.8 % (11.0-15.5); WHITE BLOOD COUNT (AUTO) 12.1 K/uL (4.8-10.8)
[2024-05-07 19:01] LABS: CREATININE 0.8 mg/dL (0.5-1.0); POTASSIUM 3.5 mmol/L (3.5-5.1)
[2024-05-07] MEDS ORDERED: cefTRIAXone 1G VIAL IV ONE (19:30)
[2024-05-07] MEDS ORDERED: SULF1TAB42 PO (19:55)
--- NOTE | 2024-05-07 19:55 | ERN ---
ED Note History of Present Illness Stated Complaint: ABCESS Chief Complaint: Skin Rash/Abscess Time Seen by MD: 17:40 Time Seen by Midlevel: 17:40 Dictation: The patient is a 28-year-old female with a history of who presents to the emergency department with complaints of abscess to left inner thigh onset one week ago. Patient reports fevers. No other complaints reported. Allergies: Coded Allergies: No Known Allergies (Unverified Allergy, Unknown, 07/18/17) Home Meds Active Scripts Sulfamethoxazole/Trimethoprim (Bactrim Ds Tablet) 800 Mg-160 Mg Tablet, 1 TAB PO BID for 7 Days, #14 TAB 0 Refills Prov:MARIEL FLAHERTY [employer] 05/07/24 Reported Medications Vit #76/Iron,Carb/FA (Prenatabs Rx Tablet) 29 Mg Iron-1 Mg Tablet, 1 EACH PO DAILY, TAB 10/16/23 Past Medical History Past Medical History: No Pertinent History Surgical History: None LMP: May 04, 2024 : 4 Para: 4 Aborts: 0 RN Note Reviewed/Agreed w/PFSH: Yes Review of System Dictation Constitutional: Negative for fever,chills, and weight loss Eyes: Negative for injury, pain,redness, and discharge ENT: Negative for injury,pain or swelling Cardiovascular: Negative for chest pain, palpitations, and edema Respiratory: Negative for shortness of breath, cough, and wheezing, Abdomen/GI: Negative for abdominal pain, nausea, vomiting, diarrhea, and constipation Back: Negative for injury and pain : Negative for injury, bleeding and discharge MS/Extremity: Negative for injury and deformity Skin: Negative for rash, and discoloration positive for abscess left thigh Neuro: Negative for headache, weakness, numbness, tingling, and seizure Psych: Negative for suicide ideation, homicidal ideation, and hallucinations Initial Vital Sign VS Vital Signs Date Time Temp Pulse Resp B/P (MAP) Pulse Ox O2 Delivery O2 Flow Rate FiO2 05/07/24 17:33 98.2 85 16 149/89 100 Room Air* 0 21 Physical Exam Dictation Vital Signs reviewed General Appearance: Alert, oriented x 3, no acute distress, well developed, nourished. Head and Face: non-traumatic. Eyes: PERRL, pink conjunctivas, eyelid no trauma, anterior chamber with arcus senilis. Ears: Pinnas intact and no signs of trauma or erythema ear canals clear and no discharge TM no erythema Nose: No discharge, no bleeding. Oropharynx: Mouth normal, tongue pink. pharynx clear,no erythema, tonsils no exudates, no abscesses noted, mucous membrane moist Neck: Supple, non-tender, no thyromegaly, no masses, no JVD, no bruits Breast:Deferred Chest:No tenderness, no crepitus, no paradoxical movement, no retractions Lungs:Clear, well-ventilated, symmetric, no rales, no wheezing, no rhonchi, no stridor, good breath sounds bilaterally Heart: Regular rate, regular rhythm, no murmur, no gallops Vascular: no peripheral edema, Abdomen: Soft, positive bowel sounds, nondistended, no guarding, nontender, no rebound, no masses no hepatomegaly, no splenomegaly, no Naranjo's sign, no hernias. Rectal: Deferred Genital: Deferred Neurological: Normal speech, motor function intact, sensory function intact Musculoskeletal: Neck nontender, full range of motion, back nontender, full range of motion, Extremities: nontender, full range of motion Skin: Color pink, dry, no turgor, no rash, no lacerations, no abrasions, no contusions. Small fluctuating abscess about3 cm in diameter noted to left inner thigh, erythema and warmth surrounding area. Lymphatic: Deferred Results (Laboratory/Radiology) Laboratory/Radiology Laboratory Tests Test 05/07/24 18:29 White Blood Count 12.1 K/uL (4.8-10.8) H Red Blood Count 4.67 MIL/uL (4.00-5.50) Hemoglobin 14.4 g/dL (12.0-16.0) Hematocrit 41.9 % (36-48) Mean Corpuscular Volume 89.7 fL (79-99) Mean Corpuscular Hemoglobin 30.8 pg (27.0-33.0) Mean Corpuscular Hemoglobin Concent 34.4 g/dL (32.0-36.0) Red Cell Distribution Width 11.8 % (11.0-15.5) Platelet Count 282 K/uL (130-400) Mean Platelet Volume 11.1 fL (7.5-10.5) H Immature Granulocyte % (Auto) 0.4 % (0-1) Neutrophils (%) (Auto) 77.3 % (40.0-77.0) H Lymphocytes (%) (Auto) 18.4 % (21.0-51.0) L Monocytes (%) (Auto) 2.9 % (3.0-13.0) L Eosinophils (%) (Auto) 0.7 % (0.0-8.0) Basophils (%) (Auto) 0.3 % (0.0-5.0) Neutrophils # (Auto) 9.3 K/uL (1.8-7.7) H Lymphocytes # (Auto) 2.2 K/uL (1.0-4.8) Monocytes # (Auto) 0.4 K/uL (0.1-1.0) Eosinophils # (Auto) 0.08 K/uL (0.00-0.70) Basophils # (Auto) 0.04 K/uL (0.00-0.20) Absolute Immature Granulocyte (auto 0.05 K/uL (0-1) Nucleated Red Blood Cells 0.0 % (0.0-0.19) Sodium Level 138 mmol/L (136-145) Potassium Level 3.5 mmol/L (3.5-5.1) Chloride Level 103 mmol/L (101-111) Carbon Dioxide Level 32 mmol/L (21-32) Blood Urea Nitrogen 5 mg/dL (7-18) L Creatinine 0.8 mg/dL (0.5-1.0) Glomerular Filtration Rate Calc 104 mL/min (>90) Random Glucose 151 mg/dL (70-105) H Total Calcium 8.1 mg/dL (8.5-10.1) L Serum Test, Qualitative NEGATIVE (NEGATIVE) Labs Reviewed?: Yes ED Course ED Course Orders Procedure Category Date Status Time Cbc With Differential LAB 05/07/24 Complete 18:01 Basic Metabolic Panel LAB 05/07/24 Complete 18:01 Testing, LAB 05/07/24 Complete Serum Hcg 18:01 Pelvic Exam Set Up CPOE 05/07/24 Transmitted (Er) 18:01 Lidocaine Hcl 1% 20ml PHA 05/07/24 Complete Vial (Lidocaine Hc 19:30 Aerobic Culture CORINA 05/07/24 In Process 19:21 Anaerobic Culture CORINA 05/07/24 In Process 19:21 I&D Set Up Bedside CPOE 05/07/24 Transmitted (Er) 19:22 Ceftriaxone 1g Vial PHA 05/07/24 Complete (Rocephine 1g Inj) 19:30 Ceftriaxone 1g Vial PHA 05/07/24 Complete (Rocephine 1g Inj) 20:00 Current Medications Medications (Trade) Dose Ordered Sig/Sarthak Route PRN Reason Start Time Stop Time Status Last Admin Dose Admin Ceftriaxone Sodium (ROCEphine 1G INJ) 1 gm ONCE ONCE IM 05/07/24 20:00 05/07/24 20:01 DC 05/07/24 20:01 Ceftriaxone Sodium (ROCEphine 1G INJ) 1 gm ONCE ONCE IV 05/07/24 19:30 05/07/24 19:37 DC Lidocaine HCl (Lidocaine HCl 1% 20ml Vial) 10 ml ONCE INJ 05/07/24 19:30 05/07/24 20:36 DC 05/07/24 20:02 Vital Signs Date Time Temp Pulse Resp B/P (MAP) Pulse Ox O2 Delivery O2 Flow Rate FiO2 05/07/24 20:00 79 18 132/74 99 Room Air* 0 21 05/07/24 17:33 98.2 85 16 149/89 99 Room Air 0 05/07/24 17:33 98.2 85 16 149/89 100 Room Air* 0 21 Medical Decision Making MDM The patient is a 28-year-old female with a history of who presents to the emergency department with complaints of abscess to left inner thigh onset one week ago. Patient reports fevers. No other complaints reported. CBC showed mild leukocytosis, no anemia, chemistry showed mild hyperglycemia, normal renal function. Patient non tachycardic, non febrile. Patient's abscess was drained will be discharged to follow up with PCP and will be giving antibiotics. Differential diagnosis: Abscess, cellulitis, sepsis, Need for hospitalization: Patient does not meet criteria for hospitalization. There are no social concerns with this patient. Procedure Blade Size: 11 I & D Procedure: no betadine prep Progress Verbal consent for the procedure was obtained. A timeout protocol was performed prior to initiating the procedure. The area was prepared and draped in the usual, sterile manner. The site was anesthetized with 1% lidocaine without epinephrine. A linear incision along the local skin lines was made and the purulent material expressed. The abscess was explored thoroughly and sequestered pockets were opened. Bleeding was minimal. The patient tolerated the procedure well without complications. Standard post- procedure care is explained and return precautions are given. DX & DISP Disposition: Discharge Departure Impression: Primary Impression: Abscess of left thigh Additional Impression: Cellulitis of left thigh Condition: Stable Scripts Sulfamethoxazole/Trimethoprim (Bactrim Ds Tablet) 800 Mg-160 Mg Tablet 1 TAB PO BID for 7 Days, #14 TAB 0 Refills Prov: FLAHERTY,MARIEL BHATIA 05/07/24 Additional Instructions: Please take antibiotics as prescribed. Please follow up with primary doctor in 1-2 days. If symptoms worsen please return to ER. FOLLOW-UP WITH PRIMARY CARE PROVIDER IN 1 TO 2 DAYS. TAKE MEDICATIONS DIRECTED HERE IN THE EMERGENCY ROOM. OKAY TO CONTINUE HOME MEDICATIONS UNLESS OTHERWISE DISCUSSED DURING YOUR VISIT IN THE EMERGENCY ROOM TODAY. RETURN TO YOUR NEAREST EMERGENCY ROOM IF SYMPTOMS WORSEN OR IF THERE IS NO IMPROVEMENT. CALL 911 IF YOU NEED IMMEDIATE ASSISTANCE. TAKE TYLENOL OR MOTRIN OVER -THE-COUNTER NEEDED AND IF NO CONTRAINDICATIONS ARE PRESENT. INCREASE ORAL HYDRATION. A WOUND CULTURE OR URINE CULTURE WAS ORDERED HERE IN THE EMERGENCY ROOM DEPARTMENT PLEASE FOLLOW-UP WITH PRIMARY CARE PROVIDER AND ADVISE THEM TO GET REPEAT PORTS FROM OUR FACILITY. IF YOU HAD ANY TROY WRAP/SPLINTS THAT WERE APPLIED HERE, PLEASE DO NOT REMOVE THEM UNTIL YOU SEE YOUR PRIMARY CARE OR SPECIALTY. Referrals: SELF,REFERRAL (PCP) Time of Disposition: 19:54 ATTESTATION BY PHYSICIAN I PERFORMED THE SUBSTANTIVE PORTION OF THE VISIT. I HAVE REVIEWED AND PERSONALLY MADE AND APPROVED THE MANAGEMENT PLAN THAT IS DOCUMENTED IN THE NOTE BY MYSELF FOR THE A PP. I ACKNOWLEDGED FOR RESPONSIBILITY FOR THE PATIENT'S MANAGEMENT PLAN. I have examined patient, & reviewed all documents, & agreed W/ the Diagnosis, and Plan MARIEL FLAHERTY May 07, 2024 19:55 JOSE MIGUEL RODARTE MD May 08, 2024 04:54
[2024-05-07 20:00] VITALS: BP 132/74; PULSE 79; RESP 18; O2SAT 99
[2024-05-07] MEDS: cefTRIAXone 1G VIAL IM ONE (20:01)
[2024-05-07] MEDS: LIDOCAINE HCL 1% 20 ML VIAL INJ SCH (20:02)
== END 2024-05-07 20:15 | disposition home or self-care (01) ==
LOC: EDH 17:31
DX: L02.416 Cutaneous abscess of left lower limb (principal); L03.116 Cellulitis of left lower limb; Z79.899 Other long term (current) drug therapy
CPT/HCPCS: 99283; 10060; 80048; 84703; 85025; 87070; 87076; 36415; 96372; J0696